=== PATIENT | male | born 1975 | race Caucasian/White ===

== ENCOUNTER 2017-01-19 21:25 | Emergency (ER) | payer MEDICAID, OTHER ==
[~2017-01-19] VITALS: Ht 172.7 cm; Wt 74.8 kg
--- NOTE | 2017-01-19 21:43 | NUR ---
PT WALKED INTO ER C/O CHEST PAIN WHICH STARTED ABOUT EARLIER TODAY PT STATES SEEMS TO HAVE GONE AWAY. THEN PT STAES ATE A MEAL AND THEN IT CAME BACK.PT STATES HAS HAD PAIN OFF AND ON SINCE .PT STATES TOOK 2 BABY ASPIRIN BEFORE HE CAME.PAIN NON PROVOKED SQUEEZING TYPE PAIN... PT ALERT, ORIENTED X 4, NO RESP DISTRESS NOTED OR REPORTED UPON ASSESSMENT... MD AT BEDSIDE...
[2017-01-19] MEDS ORDERED: NITROGLYCERIN OINT 1 GM PACKET TP ONE ×2 (22:00→22:16)
[2017-01-19] MEDS ORDERED: LORAZEPAM 0.5 MG TABLET PO ONE (22:00)
[2017-01-19 22:16] LABS: BASOPHILS # (AUTO) 0.1 K/uL (0.0-8.0); BASOPHILS % (AUTO) 0.8 % (0.0-2.0); EOSINOPHILS # (AUTO) 0.2 K/uL (0.0-0.7); EOSINOPHILS % (AUTO) 2.4 % (0.0-7.0); HEMATOCRIT 42.9 % (36.7-47.1); HEMOGLOBIN 15.2 g/dL (12.5-16.3); LYMPHOCYTES % (AUTO) 35.8 % (20.5-51.5); MEAN CORPUSCULAR HEMOGLOBIN 31.8 uug (23.8-33.4); MEAN CORPUSCULAR HGB CONC 35 g/dL (32.5-36.3); MEAN CORPUSCULAR VOLUME 89.7 fL (73.0-96.2); MONOCYTES # (AUTO) 0.6 K/uL (2.0-10.0); NEUTROPHILS # (AUTO) 4.5 K/uL (1.8-8.9); PLATELET COUNT (AUTO) 159 K/uL (152-348); RED BLOOD CELL COUNT(AUTO) 4.79 MIL/uL (4.06-5.63); RED CELL DISTRIBUTION WIDTH 11.9 % (12.1-16.2); WHITE BLOOD COUNT (AUTO) 8.4 K/uL (3.6-10.2)
[2017-01-19] MEDS ORDERED: LORAZEPAM 0.5 MG TABLET ONE (22:16)
[2017-01-19 22:20] LABS: CALCIUM 9.3 mg/dL (8.5-10.1); CREATININE 1.3 mg/dL (0.6-1.3); POTASSIUM 3.7 mmol/L (3.5-5.1)
[2017-01-19 22:37] LABS: ALBUMIN 4.2 g/dL (3.4-5.0); BILIRUBIN,DIRECT 0.3 mg/dL (0.0-0.2); TOTAL PROTEIN, SERUM 7.7 g/dL (6.4-8.2)
--- NOTE | 2017-01-20 02:01 | NUR ---
Patient discharged to home in stable conditon. Written and verbal after care instructions given. Patient verbalizes understanding of instructions. pt walked out of ER unassisted with belongings at side...
[2017-01-20 02:10] VITALS: BP 116/74
== END 2017-01-20 02:13 | disposition home or self-care (01) ==
LOC: ER 21:26
DX: R07.9 Chest pain, unspecified (principal)
CPT/HCPCS: 36415; 70030-TC; 71010; 85025; 93005; A4663

== ENCOUNTER 2017-02-07 13:35 | Emergency (ER) | payer MEDICAID ==
[~2017-02-07] VITALS: Ht 175.3 cm; Wt 70.3 kg
--- NOTE | 2017-02-07 14:23 | NUR ---
Patient discharged to home in stable conditon. Written and verbal after care instructions given to patient. Patient verbalizes understanding of instructions.
[2017-02-07] MEDS ORDERED: SULFAMETH/TRIMETH 800/160 MG TABLET PO ONE (14:30)
[2017-02-07] MEDS ORDERED: SULFAMETH/TRIMETH 800/160 MG TABLET ONE (14:41)
[2017-02-08] MEDS ORDERED: SULF1TAB48 PO (12:36)
== END 2017-02-07 14:31 | disposition home or self-care (01) ==
LOC: ER 13:35
DX: N39.0 Urinary tract infection, site not specified (principal); F41.9 Anxiety disorder, unspecified
CPT/HCPCS: A4663

== ENCOUNTER 2017-02-08 12:28 | Emergency (ER) | payer MEDICAID ==
[~2017-02-08] VITALS: Ht 175.3 cm; Wt 70.3 kg
[2017-02-08] MEDS ORDERED: SULF1TAB48 PO (12:36)
--- NOTE | 2017-02-08 12:46 | NUR ---
PT IS IN ROOM #2A. DR AMEZCUA EVALUATED THE PT.
[2017-02-08 13:00] LABS: *BILIRUBIN,URIN NEGATIVE (NEGATIVE); *BLOOD, URINE 2+ (NEGATIVE); *CLARITY,URINE CLEAR (CLEAR); *COLOR,URINE STRAW (YELLOW); *KETONES,URINE NEGATIVE (NEGATIVE); *PROTEIN,URINE NEGATIVE (NEGATIVE); *UROBILINOGEN,URINE 0.2 E.U./dl (NORMAL); LEUKOCYTE ESTERASE ,URINE NEGATIVE (NEGATIVE); NITRITE, URINE NEGATIVE (NEGATIVE); UGLUCOSE NEGATIVE (NEGATIVE)
[2017-02-08 13:05] LABS: BACTERIA,URINE FEW /HPF (NONE SEEN); SQUAMOUS EPITHELIAL CELL,UR FEW /HPF (NONE SEEN); WBC,URINE 0-3 /HPF (0-3)
[2017-02-08 13:40] LABS: BASOPHILS # (AUTO) 0.1 K/uL (0.0-8.0); BASOPHILS % (AUTO) 1.4 % (0.0-2.0); EOSINOPHILS # (AUTO) 0.1 K/uL (0.0-0.7); EOSINOPHILS % (AUTO) 1.6 % (0.0-7.0); HEMATOCRIT 43.5 % (40-50); HEMOGLOBIN 14.3 G/DL (14.0-18.0); LYMPHOCYTES # (AUTO) 3.1 K/UL (0.8-4.8); LYMPHOCYTES % (AUTO) 40.1 % (20.5-51.5); MEAN CORPUSCULAR HEMOGLOBIN 29.6 UUG (27.0-31.0); MEAN CORPUSCULAR HGB CONC 33 g/dL (32.0-37.0); MONOCYTES # (AUTO) 0.5 K/UL (0.1-1.30); MONOCYTES % (AUTO) 6.7 % (0.0-11.0); NEUTROPHILS # (AUTO) 3.9 K/UL (1.8-8.9); NEUTROPHILS % (AUTO) 50.2 % (38.5-71.5); PLATELET COUNT (AUTO) 151 K/UL (150-450); RED BLOOD CELL COUNT(AUTO) 4.84 MIL/UL (4.7-6.1); RED CELL DISTRIBUTION WIDTH 11.9 % (11.5-14.5); WHITE BLOOD COUNT (AUTO) 7.7 K/UL (4.0-11.2)
[2017-02-08 13:46] LABS: CALCIUM 9.2 mg/dL (8.5-10.1); CREATININE 1.3 mg/dL (0.6-1.3); POTASSIUM 4.1 mmol/L (3.5-5.1)
[2017-02-08 14:15] VITALS: BP 139/79
--- NOTE | 2017-02-08 14:15 | NUR ---
PT WAS D/C TO HOME. D/C INSTRUCTIONS GIVEN TO THE PT.
== END 2017-02-08 14:16 | disposition home or self-care (01) ==
LOC: ER 12:28
DX: N39.0 Urinary tract infection, site not specified (principal); F41.9 Anxiety disorder, unspecified
CPT/HCPCS: 36415; 76700; 85025; A4663

== ENCOUNTER 2017-03-24 11:52 | Emergency (ER) | payer OTHER ==
[~2017-03-24] VITALS: Ht 172.7 cm; Wt 68.0 kg
[~2017-03-24 11:52] MED LIST: SULF1TAB48 PO
--- NOTE | 2017-03-24 12:01 | NUR ---
DR AMEZCUA AT THE BEDSIDE FOR EVAL AND EXAM.
[2017-03-24 12:35] LABS: CREATININE 1.2 mg/dL (0.6-1.3)
[2017-03-24 12:36] LABS: BASOPHILS # (AUTO) 0.1 K/uL (0.0-8.0); BASOPHILS % (AUTO) 0.9 % (0.0-2.0); EOSINOPHILS # (AUTO) 0.1 K/uL (0.0-0.7); EOSINOPHILS % (AUTO) 1.6 % (0.0-7.0); HEMATOCRIT 42.3 % (40-50); HEMOGLOBIN 14.1 G/DL (14.0-18.0); LYMPHOCYTES # (AUTO) 2.3 K/UL (0.8-4.8); LYMPHOCYTES % (AUTO) 31.9 % (20.5-51.5); MEAN CORPUSCULAR HEMOGLOBIN 30.4 UUG (27.0-31.0); MEAN CORPUSCULAR HGB CONC 34 g/dL (32.0-37.0); MEAN CORPUSCULAR VOLUME 90.7 FL (82.0-92.0); MONOCYTES # (AUTO) 0.5 K/UL (0.1-1.30); MONOCYTES % (AUTO) 7.3 % (0.0-11.0); NEUTROPHILS # (AUTO) 4.1 K/UL (1.8-8.9); NEUTROPHILS % (AUTO) 58.3 % (38.5-71.5); PLATELET COUNT (AUTO) 150 K/UL (150-450); RED BLOOD CELL COUNT(AUTO) 4.66 MIL/UL (4.7-6.1); WHITE BLOOD COUNT (AUTO) 7.1 K/UL (4.0-11.2)
[2017-03-24 12:48] LABS: BILIRUBIN,DIRECT 0.2 mg/dL (0.0-0.2); BILIRUBIN,TOTAL 0.9 mg/dL (0.2-1.0)
[2017-03-24 13:21] VITALS: BP 115/66
--- NOTE | 2017-03-24 13:21 | NUR ---
Patient discharged to home in stable conditon. Written and verbal after care instructions given. Patient verbalizes understanding of instructions.
== END 2017-03-24 13:22 | disposition home or self-care (01) ==
LOC: ER 11:57
DX: R07.89 Other chest pain (principal); F41.9 Anxiety disorder, unspecified
CPT/HCPCS: 36415; 70030-TC; 85025; 85730; 93005; A4663

== ENCOUNTER 2018-05-04 22:05 | Emergency (ER) | payer MEDICAID, OTHER ==
[~2018-05-04] VITALS: Ht 172.7 cm; Wt 70.3 kg
[2018-05-04 22:34] LABS: *BILIRUBIN,URIN NEGATIVE (NEGATIVE); *BLOOD, URINE 2+ (NEGATIVE); *CLARITY,URINE CLEAR (CLEAR); *COLOR,URINE YELLOW (YELLOW); *KETONES,URINE NEGATIVE (NEGATIVE); *PROTEIN,URINE NEGATIVE (NEGATIVE); *UROBILINOGEN,URINE 0.2 E.U./dl (NORMAL); LEUKOCYTE ESTERASE ,URINE NEGATIVE (NEGATIVE); NITRITE, URINE NEGATIVE (NEGATIVE); UGLUCOSE NEGATIVE (NEGATIVE)
[2018-05-04 22:40] LABS: BACTERIA,URINE NONE SEEN /HPF (NONE SEEN); WBC,URINE 0-3 /HPF (0-3)
[2018-05-04 22:41] LABS: SQUAMOUS EPITHELIAL CELL,UR NONE SEEN /HPF (NONE SEEN)
[2018-05-04] MEDS ORDERED: ACETAMINOPHEN ES 500 MG TABLET ONE (22:44)
[2018-05-04] MEDS ORDERED: ACETAMINOPHEN ES 500 MG TABLET PO ONE (22:45)
[2018-05-04 23:29] LABS: BILIRUBIN,TOTAL 0.9 mg/dL (0.2-1.0); TOTAL PROTEIN, SERUM 7.5 g/dL (6.4-8.2)
[2018-05-04 23:38] LABS: BASOPHILS % (AUTO) 0.3 % (0.0-2.0); EOSINOPHILS % (AUTO) 0.2 % (0.0-7.0); HEMATOCRIT 42.1 % (36.7-47.1); HEMOGLOBIN 14.1 g/dL (12.5-16.3); LYMPHOCYTES # (AUTO) 2.1 K/uL (20.0-40.0); LYMPHOCYTES % (AUTO) 15.3 % (20.5-51.5); MEAN CORPUSCULAR HEMOGLOBIN 30.4 uug (23.8-33.4); MEAN CORPUSCULAR HGB CONC 34 g/dL (32.5-36.3); MEAN CORPUSCULAR VOLUME 90.8 fL (73.0-96.2); MONOCYTES # (AUTO) 1.2 K/uL (2.0-10.0); MONOCYTES % (AUTO) 8.3 % (0.0-11.0); NEUTROPHILS # (AUTO) 10.7 K/uL (1.8-8.9); NEUTROPHILS % (AUTO) 75.9 % (38.5-71.5); PLATELET COUNT (AUTO) 171 K/uL (152-348); RED BLOOD CELL COUNT(AUTO) 4.64 MIL/uL (4.06-5.63)
--- NOTE | 2018-05-05 00:18 | NUR ---
Patient discharged to home in stable conditon. Written and verbal after care instructions given. Patient verbalizes understanding of instructions. Patient able to ambulate unassisted with a steady gait. Patient left with all personal belongings.
[2018-05-05 00:30] VITALS: BP 138/88
== END 2018-05-05 00:18 | disposition home or self-care (01) ==
LOC: ER 22:07
DX: R10.9 Unspecified abdominal pain (principal); J02.0 Streptococcal pharyngitis
CPT/HCPCS: 36415; 80053; 81001; 85025; 86403; 87086; 99284; A4663; A9150

== ENCOUNTER 2018-05-27 00:35 | Emergency (ER) | payer SELFPAY ==
--- NOTE | 2018-05-27 01:00 | NUR ---
Patient decided not to be traige or seen by ERMD
== END 2018-05-27 02:22 | disposition left against medical advice (07) ==
LOC: ER 02:07
DX: Z53.21 Procedure and treatment not carried out due to patient leaving prior to being seen by health care provider (principal)

== ENCOUNTER 2018-06-24 11:20 | Emergency (ER) | payer OTHER ==
[~2018-06-24] VITALS: Ht 167.6 cm; Wt 68.0 kg
== END 2018-06-24 11:42 | disposition home or self-care (01) ==
LOC: ER 11:22
DX: A09 Infectious gastroenteritis and colitis, unspecified (principal)
CPT/HCPCS: 99283; A4663; J7030

== ENCOUNTER 2018-07-14 13:37 | Emergency (ER) | payer OTHER ==
[~2018-07-14] VITALS: Ht 172.7 cm; Wt 68.0 kg
[2018-07-14] MEDS ORDERED: FINASTERIDE 5 MG (13:57)
--- NOTE | 2018-07-14 14:27 | NUR ---
PT IS IN ROOM #2A. DR THOMSON EVALUATED THE PT.
[2018-07-14 14:37] LABS: BASOPHILS # (AUTO) 0.1 K/uL (0.0-8.0); BASOPHILS % (AUTO) 0.9 % (0.0-2.0); EOSINOPHILS # (AUTO) 0.2 K/uL (0.0-0.7); EOSINOPHILS % (AUTO) 2.1 % (0.0-7.0); HEMATOCRIT 44.1 % (36.7-47.1); HEMOGLOBIN 14.9 g/dL (12.5-16.3); LYMPHOCYTES % (AUTO) 36.7 % (20.5-51.5); MEAN CORPUSCULAR HGB CONC 34 g/dL (32.5-36.3); MEAN CORPUSCULAR VOLUME 91.7 fL (73.0-96.2); MONOCYTES # (AUTO) 0.6 K/uL (2.0-10.0); NEUTROPHILS # (AUTO) 4.3 K/uL (1.8-8.9); NEUTROPHILS % (AUTO) 53.3 % (38.5-71.5); PLATELET COUNT (AUTO) 158 K/uL (152-348); RED BLOOD CELL COUNT(AUTO) 4.81 MIL/uL (4.06-5.63); WHITE BLOOD COUNT (AUTO) 8.1 K/uL (3.6-10.2)
--- NOTE | 2018-07-14 14:43 | NUR ---
PT WAS EVALUATED BY DR THOMSON. PT WAS D/C TO HOME. D/C INSTRUCTIONS GIVEN TO THE PT.
[2018-07-14 14:44] VITALS: BP 132/72
== END 2018-07-14 14:46 | disposition home or self-care (01) ==
LOC: ER 13:37
DX: R59.0 Localized enlarged lymph nodes (principal)
CPT/HCPCS: 36415; 85025; A4663

== ENCOUNTER 2018-12-19 15:06 | Emergency (ER) | payer OTHER ==
[~2018-12-19] VITALS: Ht 172.7 cm; Wt 68.0 kg
[~2018-12-19 15:06] MED LIST changes: +FINASTERIDE 5 MG; -SULF1TAB48 PO
[2018-12-19 15:54] LABS: BASOPHILS # (AUTO) 0.1 K/uL (0.0-8.0); BASOPHILS % (AUTO) 0.8 % (0.0-2.0); EOSINOPHILS # (AUTO) 0.2 K/uL (0.0-0.7); EOSINOPHILS % (AUTO) 2.3 % (0.0-7.0); HEMATOCRIT 44.9 % (36.7-47.1); LYMPHOCYTES # (AUTO) 2.7 K/uL (20.0-40.0); LYMPHOCYTES % (AUTO) 37.5 % (20.5-51.5); MEAN CORPUSCULAR HEMOGLOBIN 29.4 uug (23.8-33.4); MEAN CORPUSCULAR HGB CONC 33 g/dL (32.5-36.3); MEAN CORPUSCULAR VOLUME 88.3 fL (73.0-96.2); MONOCYTES # (AUTO) 0.5 K/uL (2.0-10.0); MONOCYTES % (AUTO) 6.3 % (0.0-11.0); NEUTROPHILS # (AUTO) 3.8 K/uL (1.8-8.9); NEUTROPHILS % (AUTO) 53.1 % (38.5-71.5); PLATELET COUNT (AUTO) 151 K/uL (152-348); RED BLOOD CELL COUNT(AUTO) 5.09 MIL/uL (4.06-5.63); WHITE BLOOD COUNT (AUTO) 7.2 K/uL (3.6-10.2)
[2018-12-19 15:58] LABS: *BILIRUBIN,URIN NEGATIVE (NEGATIVE); *BLOOD, URINE 2+ (NEGATIVE); *CLARITY,URINE CLEAR (CLEAR); *COLOR,URINE YELLOW (YELLOW); *KETONES,URINE NEGATIVE (NEGATIVE); *UROBILINOGEN,URINE 0.2 E.U./dl (NORMAL); LEUKOCYTE ESTERASE ,URINE NEGATIVE (NEGATIVE); NITRITE, URINE NEGATIVE (NEGATIVE); UGLUCOSE NEGATIVE (NEGATIVE)
[2018-12-19 15:59] LABS: CREATININE 1.4 mg/dL (0.6-1.3); POTASSIUM 4.2 mmol/L (3.5-5.1)
[2018-12-19 16:04] LABS: RBC,URINE 20-50 /HPF (0-3); WBC,URINE NONE SEEN /HPF (0-3)
--- NOTE | 2018-12-19 17:46 | NUR ---
PT DISCHARGED TO HOME, DISCHAREG INSTRUCTIONS AND PRESCRIPTION GIVEN. COPY OF U/S CD WAS GIVEN WITH LABS.
== END 2018-12-19 17:50 | disposition home or self-care (01) ==
LOC: ER 15:06
DX: N20.0 Calculus of kidney (principal); N28.9 Disorder of kidney and ureter, unspecified; Z88.8 Allergy status to other drugs, medicaments and biological substances; Z79.899 Other long term (current) drug therapy
CPT/HCPCS: 36415; 76770; 85025; A4663

== ENCOUNTER 2018-12-27 13:33 | Emergency (ER) | payer OTHER ==
[~2018-12-27] VITALS: Ht 172.7 cm; Wt 68.0 kg
--- NOTE | 2018-12-27 14:15 | NUR ---
Patient coming to ED with co right flank pain, on scale 1-10=6. Patient uses bathroom, and UA sent to lab. Patient has previously been to ED with right flank pain 2 weeks ago, and issur remains unresolved.
[2018-12-27 14:34] LABS: *BILIRUBIN,URIN NEGATIVE (NEGATIVE); *BLOOD, URINE 1+ (NEGATIVE); *CLARITY,URINE CLEAR (CLEAR); *COLOR,URINE YELLOW (YELLOW); *KETONES,URINE NEGATIVE (NEGATIVE); *UROBILINOGEN,URINE 0.2 E.U./dl (NORMAL); LEUKOCYTE ESTERASE ,URINE NEGATIVE (NEGATIVE); NITRITE, URINE NEGATIVE (NEGATIVE); UGLUCOSE NEGATIVE (NEGATIVE)
[2018-12-27 14:41] LABS: WBC,URINE 0-3 /HPF (0-3)
[2018-12-27 15:47] LABS: BASOPHILS % (AUTO) 0.7 % (0.0-2.0); EOSINOPHILS # (AUTO) 0.1 K/uL (0.0-0.7); EOSINOPHILS % (AUTO) 1.8 % (0.0-7.0); HEMOGLOBIN 14.4 g/dL (12.5-16.3); LYMPHOCYTES # (AUTO) 2.8 K/uL (20.0-40.0); LYMPHOCYTES % (AUTO) 38.7 % (20.5-51.5); MEAN CORPUSCULAR HEMOGLOBIN 29.4 uug (23.8-33.4); MEAN CORPUSCULAR HGB CONC 34 g/dL (32.5-36.3); MEAN CORPUSCULAR VOLUME 87.9 fL (73.0-96.2); MONOCYTES # (AUTO) 0.5 K/uL (2.0-10.0); MONOCYTES % (AUTO) 6.7 % (0.0-11.0); NEUTROPHILS # (AUTO) 3.8 K/uL (1.8-8.9); NEUTROPHILS % (AUTO) 52.1 % (38.5-71.5); PLATELET COUNT (AUTO) 146 K/uL (152-348); WHITE BLOOD COUNT (AUTO) 7.2 K/uL (3.6-10.2)
[2018-12-27 15:56] LABS: CREATININE 1.2 mg/dL (0.6-1.3); POTASSIUM 4.1 mmol/L (3.5-5.1)
[2018-12-27 16:02] LABS: BILIRUBIN,TOTAL 1.4 mg/dL (0.2-1.0); TOTAL PROTEIN, SERUM 7.5 g/dL (6.4-8.2)
--- NOTE | 2018-12-27 16:19 | NUR ---
DC AND FOLLOW UP INSTRUCTIONS GIVEN AND EXPLAINED TO PATIENT WHO STATES HE UNDERSTANDS ALL INSTRUCTIONS. COPY OF LABS GIVEN.
[2018-12-27 16:20] VITALS: BP 128/79
== END 2018-12-27 16:21 | disposition home or self-care (01) ==
LOC: ER 13:33
DX: R10.9 Unspecified abdominal pain (principal); R30.0 Dysuria; R35.0 Frequency of micturition; Z88.8 Allergy status to other drugs, medicaments and biological substances; Z79.899 Other long term (current) drug therapy
CPT/HCPCS: 36415; 76770; 85025; A4663

== ENCOUNTER 2019-03-30 12:20 | Emergency (ER) | payer OTHER ==
[~2019-03-30] VITALS: Ht 172.7 cm; Wt 68.0 kg
[2019-03-30 13:03] LABS: *BILIRUBIN,URIN NEGATIVE (NEGATIVE); *BLOOD, URINE 1+ (NEGATIVE); *CLARITY,URINE CLEAR (CLEAR); *COLOR,URINE LIGHT YELLOW (YELLOW); *KETONES,URINE NEGATIVE (NEGATIVE); *UROBILINOGEN,URINE 0.2 E.U./dl (NORMAL); LEUKOCYTE ESTERASE ,URINE NEGATIVE (NEGATIVE); NITRITE, URINE NEGATIVE (NEGATIVE); UGLUCOSE NEGATIVE (NEGATIVE)
[2019-03-30 13:10] LABS: BACTERIA,URINE NONE SEEN /HPF (NONE SEEN); SQUAMOUS EPITHELIAL CELL,UR NONE SEEN /HPF (NONE SEEN); WBC,URINE 0-3 /HPF (0-3)
[2019-03-30 13:20] LABS: BASOPHILS # (AUTO) 0.1 K/uL (0.0-8.0); BASOPHILS % (AUTO) 0.8 % (0.0-2.0); EOSINOPHILS # (AUTO) 0.1 K/uL (0.0-0.7); EOSINOPHILS % (AUTO) 2.1 % (0.0-7.0); HEMATOCRIT 41.6 % (36.7-47.1); HEMOGLOBIN 13.9 g/dL (12.5-16.3); LYMPHOCYTES # (AUTO) 2.3 K/uL (20.0-40.0); LYMPHOCYTES % (AUTO) 34.9 % (20.5-51.5); MEAN CORPUSCULAR HEMOGLOBIN 30.5 uug (23.8-33.4); MEAN CORPUSCULAR HGB CONC 34 g/dL (32.5-36.3); MEAN CORPUSCULAR VOLUME 91.2 fL (73.0-96.2); MONOCYTES # (AUTO) 0.4 K/uL (2.0-10.0); MONOCYTES % (AUTO) 6.4 % (0.0-11.0); NEUTROPHILS # (AUTO) 3.7 K/uL (1.8-8.9); NEUTROPHILS % (AUTO) 55.8 % (38.5-71.5); PLATELET COUNT (AUTO) 140 K/uL (152-348); RED BLOOD CELL COUNT(AUTO) 4.56 MIL/uL (4.06-5.63); WHITE BLOOD COUNT (AUTO) 6.7 K/uL (3.6-10.2)
[2019-03-30 13:25] LABS: CREATININE 1.1 mg/dL (0.6-1.3); POTASSIUM 4.3 mmol/L (3.5-5.1)
[2019-03-30 13:31] LABS: BILIRUBIN,DIRECT 0.2 mg/dL (0.0-0.2); BILIRUBIN,TOTAL 1.1 mg/dL (0.2-1.0); TOTAL PROTEIN, SERUM 7.1 g/dL (6.4-8.2)
--- NOTE | 2019-03-30 13:54 | NUR ---
Patient discharged to home in stable conditon. Written and verbal after care instructions given. Patient verbalizes understanding of instructions.
== END 2019-03-30 14:01 | disposition home or self-care (01) ==
LOC: ER 12:23
DX: R31.29 Other microscopic hematuria (principal); D29.1 Benign neoplasm of prostate; Z88.8 Allergy status to other drugs, medicaments and biological substances; Z79.899 Other long term (current) drug therapy
CPT/HCPCS: 36415; 76700; 83690; 85025; 87086; A4663

== ENCOUNTER 2020-06-05 10:27 | Emergency (ER) | payer OTHER ==
[~2020-06-05] VITALS: Ht 172.7 cm; Wt 70.3 kg
--- NOTE | 2020-06-05 10:44 | NUR ---
Pt presents to ER for c/o of Lt flank pain for 2 months, on/off but worse these past 2 days. Pt denies pain or burning during urination. Denies kidney stones. Placed in Bed 4B. No acute distress. States pain level is 3/10. Awaiting MD huffman.
[2020-06-05 11:13] LABS: *BILIRUBIN,URIN NEGATIVE (NEGATIVE); *BLOOD, URINE 1+ (NEGATIVE); *CLARITY,URINE CLEAR (CLEAR); *COLOR,URINE YELLOW (YELLOW); *KETONES,URINE NEGATIVE (NEGATIVE); *UROBILINOGEN,URINE 0.2 E.U./dl (NORMAL); LEUKOCYTE ESTERASE ,URINE NEGATIVE (NEGATIVE); NITRITE, URINE NEGATIVE (NEGATIVE); PH,URINE 7.5 (5.0-8.0); UGLUCOSE NEGATIVE (NEGATIVE)
[2020-06-05] MEDS ORDERED: IV NORMAL SALINE 1000 ML BAG IV ONE (11:15)
--- NOTE | 2020-06-05 11:24 | NUR ---
attempted to insert IV to pt, and informed him that IV is for hydration. Pt requested to speak to Dr. Bashir. Dr. Bashir made aware.
--- NOTE | 2020-06-05 11:38 | NUR ---
Dr. Bashir at bedside speaking with patient
[2020-06-05 11:44] LABS: BASOPHILS # (AUTO) 0.1 K/uL (0.0-8.0); EOSINOPHILS # (AUTO) 0.1 K/uL (0.0-0.7); EOSINOPHILS % (AUTO) 1.2 % (0.0-7.0); HEMATOCRIT 42.9 % (36.7-47.1); HEMOGLOBIN 14.7 g/dL (12.5-16.3); LYMPHOCYTES # (AUTO) 2.8 K/uL (20.0-40.0); LYMPHOCYTES % (AUTO) 39.3 % (20.5-51.5); MEAN CORPUSCULAR HEMOGLOBIN 30.4 uug (23.8-33.4); MEAN CORPUSCULAR HGB CONC 34 g/dL (32.5-36.3); MEAN CORPUSCULAR VOLUME 88.7 fL (73.0-96.2); MONOCYTES # (AUTO) 0.5 K/uL (2.0-10.0); MONOCYTES % (AUTO) 6.3 % (0.0-11.0); NEUTROPHILS # (AUTO) 3.7 K/uL (1.8-8.9); NEUTROPHILS % (AUTO) 52.2 % (38.5-71.5); PLATELET COUNT (AUTO) 170 K/uL (152-348); RED BLOOD CELL COUNT(AUTO) 4.83 MIL/uL (4.06-5.63); WHITE BLOOD COUNT (AUTO) 7.1 K/uL (3.6-10.2)
[2020-06-05 11:52] LABS: CREATININE 1.1 mg/dL (0.6-1.3); POTASSIUM 4.2 mmol/L (3.5-5.1)
[2020-06-05 11:58] LABS: BILIRUBIN,TOTAL 1.2 mg/dL (0.2-1.0); TOTAL PROTEIN, SERUM 7.5 g/dL (6.4-8.2)
--- NOTE | 2020-06-05 11:58 | NUR ---
Ultrasound at bedside.
[2020-06-05 13:45] LABS: BACTERIA,URINE NONE SEEN /HPF (NONE SEEN); RBC,URINE 0-3 /HPF (0-3); SQUAMOUS EPITHELIAL CELL,UR FEW /HPF (NONE SEEN); WBC,URINE 0-3 /HPF (0-3)
--- NOTE | 2020-06-05 14:05 | NUR ---
Per Dr. Bashir pt stable or DC, DC instructions and prescriptions given and reviewed with patient. Verbalized understanding. IV d'cd noted with tip intact. Left ER in stable condition.
[2020-06-05 14:06] VITALS: BP 109/68
== END 2020-06-05 14:00 | disposition home or self-care (01) ==
LOC: ER 10:27
DX: R10.9 Unspecified abdominal pain (principal); Z87.442 Personal history of urinary calculi; R31.29 Other microscopic hematuria; Z82.49 Family history of ischemic heart disease and other diseases of the circulatory system; N40.0 Benign prostatic hyperplasia without lower urinary tract symptoms; Z87.440 Personal history of urinary (tract) infections
CPT/HCPCS: 36415; 76770; 85025; A4663

== ENCOUNTER 2020-11-12 10:05 | Emergency (ER) | payer OTHER ==
[~2020-11-12] VITALS: Ht 172.7 cm; Wt 72.6 kg
--- NOTE | 2020-11-12 10:20 | NUR ---
at bedside for assessment
--- NOTE | 2020-11-12 10:39 | NUR ---
photovoltaic fabrication technician noted in room to draw blood at this time
--- NOTE | 2020-11-12 10:45 | NUR ---
Patient taken to CT via wheelchair
[2020-11-12 10:47] LABS: BASOPHILS # (AUTO) 0.3 K/uL (0.0-8.0); EOSINOPHILS # (AUTO) 0.1 K/uL (0.0-0.7); EOSINOPHILS % (AUTO) 1.6 % (0.0-7.0); HEMATOCRIT 44.2 % (36.7-47.1); HEMOGLOBIN 14.9 g/dL (12.5-16.3); LYMPHOCYTES # (AUTO) 2.1 K/uL (20.0-40.0); LYMPHOCYTES % (AUTO) 28.5 % (20.5-51.5); MEAN CORPUSCULAR HEMOGLOBIN 30.3 uug (23.8-33.4); MEAN CORPUSCULAR HGB CONC 34 g/dL (32.5-36.3); MEAN CORPUSCULAR VOLUME 89.9 fL (73.0-96.2); MONOCYTES # (AUTO) 0.5 K/uL (2.0-10.0); MONOCYTES % (AUTO) 6.6 % (0.0-11.0); NEUTROPHILS # (AUTO) 4.3 K/uL (1.8-8.9); NEUTROPHILS % (AUTO) 59.3 % (38.5-71.5); PLATELET COUNT (AUTO) 173 K/uL (152-348); RED BLOOD CELL COUNT(AUTO) 4.92 MIL/uL (4.06-5.63); WHITE BLOOD COUNT (AUTO) 7.2 K/uL (3.6-10.2)
[2020-11-12 10:54] LABS: CREATININE 1.1 mg/dL (0.6-1.3); POTASSIUM 4.2 mmol/L (3.5-5.1)
--- NOTE | 2020-11-12 10:56 | NUR ---
Patient returned from CT scan at this time
[2020-11-12 10:59] LABS: BILIRUBIN,DIRECT 0.2 mg/dL (0.0-0.2); BILIRUBIN,TOTAL 1.1 mg/dL (0.2-1.0); TOTAL PROTEIN, SERUM 7.3 g/dL (6.4-8.2)
[2020-11-12 11:28] LABS: *BILIRUBIN,URIN NEGATIVE (NEGATIVE); *BLOOD, URINE 2+ (NEGATIVE); *CLARITY,URINE CLEAR (CLEAR); *COLOR,URINE YELLOW (YELLOW); *KETONES,URINE NEGATIVE (NEGATIVE); *UROBILINOGEN,URINE 0.2 E.U./dl (NORMAL); LEUKOCYTE ESTERASE ,URINE NEGATIVE (NEGATIVE); NITRITE, URINE NEGATIVE (NEGATIVE); UGLUCOSE NEGATIVE (NEGATIVE)
[2020-11-12] MEDS ORDERED: FINA5TAB11 PO (11:47)
--- NOTE | 2020-11-12 11:57 | NUR ---
Patient discharged to home in stable condition. Able to ambulate with steady gait. took all belongings, no signs of acute distrerss noted. Written and verbal after care instructions given. Patient verbalizes understanding of instructions. Stressed follow up or return to ER for worsening s/s.
[2020-11-12 11:58] VITALS: BP 120/75
[2020-11-12 13:13] LABS: BACTERIA,URINE NONE SEEN /HPF (NONE SEEN); SQUAMOUS EPITHELIAL CELL,UR FEW /HPF (NONE SEEN); WBC,URINE 0-3 /HPF (0-3)
== END 2020-11-12 12:00 | disposition home or self-care (01) ==
LOC: ER 10:05
DX: N40.1 Benign prostatic hyperplasia with lower urinary tract symptoms (principal); R10.30 Lower abdominal pain, unspecified; F41.9 Anxiety disorder, unspecified; K40.20 Bilateral inguinal hernia, without obstruction or gangrene, not specified as recurrent
CPT/HCPCS: 36415; 85025; A4663

== ENCOUNTER 2021-01-16 19:09 | Emergency (ER) | payer OTHER ==
[~2021-01-16] VITALS: Ht 172.7 cm; Wt 74.8 kg
[~2021-01-16 19:09] MED LIST changes: +FINA5TAB11 PO
--- NOTE | 2021-01-16 19:23 | NUR ---
MD Salas in room to do MSE.
[2021-01-16] MEDS ORDERED: OFLO5DRO5 OT (19:36)
[2021-01-16] MEDS ORDERED: HYDR-3980 PO (19:36)
[2021-01-16 19:45] VITALS: BP 130/64
--- NOTE | 2021-01-16 19:45 | NUR ---
Patient discharged to home in stable condition. Written and verbal after care instructions given. Patient verbalizes understanding of instructions. Stressed follow up or return to ER for worsening s/s. Patient ambulates with steady gait, received paper Rx, vital signs stable, and left with all personal belongings.
== END 2021-01-16 19:45 | disposition home or self-care (01) ==
LOC: ER 19:14
DX: H60.92 Unspecified otitis externa, left ear (principal); Z82.49 Family history of ischemic heart disease and other diseases of the circulatory system
CPT/HCPCS: A4663

== ENCOUNTER 2021-04-25 21:55 | Emergency (ER) | payer OTHER ==
[~2021-04-25] VITALS: Ht 172.7 cm; Wt 73.5 kg
[~2021-04-25 21:55] MED LIST changes: +HYDR-3980 PO; +OFLO5DRO5 OT
[2021-04-26 01:34] LABS: *BILIRUBIN,URIN NEGATIVE (NEGATIVE); *BLOOD, URINE 2+ (NEGATIVE); *CLARITY,URINE CLEAR (CLEAR); *KETONES,URINE NEGATIVE (NEGATIVE); *UROBILINOGEN,URINE 0.2 E.U./dl (NORMAL); LEUKOCYTE ESTERASE ,URINE NEGATIVE (NEGATIVE); NITRITE, URINE NEGATIVE (NEGATIVE); PH,URINE 6.5 (5.0-8.0); UGLUCOSE NEGATIVE (NEGATIVE)
[2021-04-26 01:42] LABS: *COLOR,URINE STRAW (YELLOW)
[2021-04-26 01:44] LABS: BACTERIA,URINE NONE SEEN /HPF (NONE SEEN); RBC,URINE 0-3 /HPF (0-3); SQUAMOUS EPITHELIAL CELL,UR FEW /HPF (NONE SEEN); WBC,URINE NONE SEEN /HPF (0-3)
[2021-04-26] MEDS ORDERED: IV NORMAL SALINE 1000 ML BAG IV ONE (02:15)
[2021-04-26 02:46] LABS: HEMATOCRIT 47.5 % (36.7-47.1); MEAN CORPUSCULAR HEMOGLOBIN 30.8 uug (23.8-33.4); MEAN CORPUSCULAR VOLUME 89.9 fL (73.0-96.2); PLATELET COUNT (AUTO) 216 K/uL (152-348)
[2021-04-26 02:54] LABS: POTASSIUM 3.9 mmol/L (3.5-5.1)
[2021-04-26 03:05] LABS: BILIRUBIN,DIRECT 0.2 mg/dL (0.0-0.2); BILIRUBIN,TOTAL 1.2 mg/dL (0.2-1.0); TOTAL PROTEIN, SERUM 8.6 g/dL (6.4-8.2)
--- NOTE | 2021-04-26 03:30 | NUR ---
Vibha davis into do ultrasound.
--- NOTE | 2021-04-26 04:00 | NUR ---
Patient resting on gurny with no distress noted.
[2021-04-26] MEDS ORDERED: AZITHROMYCIN 250 MG TABLET ONE (04:29)
[2021-04-26] MEDS ORDERED: LIDOCAINE HCL 1% 20 ML VIAL ONE (04:29)
[2021-04-26] MEDS ORDERED: CEFTRIAXONE 500 MG VIAL IM ONE (04:30)
[2021-04-26] MEDS ORDERED: CEFTRIAXONE 500 MG VIAL ONE (04:30)
[2021-04-26] MEDS ORDERED: AZITHROMYCIN 250 MG TABLET PO ONE (04:30)
--- NOTE | 2021-04-26 05:50 | NUR ---
IV removed. Catheter intact and site benign. Pressure and 4x4 gauze applied to site. No bleeding noted.
[2021-04-26 05:57] VITALS: BP 122/72
--- NOTE | 2021-04-26 05:57 | NUR ---
Patient discharged to home in stable condition. Written and verbal after care instructions given. Patient verbalizes understanding of instructions. Stressed follow up or return to ER for worsening s/s.
== END 2021-04-26 05:58 | disposition home or self-care (01) ==
LOC: ER 21:55
DX: R10.31 Right lower quadrant pain (principal); N34.2 Other urethritis; Z82.49 Family history of ischemic heart disease and other diseases of the circulatory system; F41.9 Anxiety disorder, unspecified
CPT/HCPCS: 36415; 76770; 80048; 80076; 81001; 83690; 85025; 87491; 96360; 96372; 99285; J0696; J3490; A4663; J7030; Q0144

== ENCOUNTER 2021-06-18 13:44 | Emergency (ER) | payer OTHER ==
[~2021-06-18] VITALS: Ht 172.7 cm; Wt 73.5 kg
--- NOTE | 2021-06-18 14:12 | NUR ---
DR Pepper at the bedside for MSE.
[2021-06-18 14:45] LABS: *BILIRUBIN,URIN NEGATIVE (NEGATIVE); *BLOOD, URINE 3+ (NEGATIVE); *CLARITY,URINE CLEAR (CLEAR); *COLOR,URINE YELLOW (YELLOW); *KETONES,URINE NEGATIVE (NEGATIVE); *UROBILINOGEN,URINE 0.2 E.U./dl (NORMAL); LEUKOCYTE ESTERASE ,URINE NEGATIVE (NEGATIVE); NITRITE, URINE NEGATIVE (NEGATIVE); UGLUCOSE NEGATIVE (NEGATIVE)
[2021-06-18 14:47] LABS: CREATININE 1.1 mg/dL (0.6-1.3); HEMATOCRIT 43.9 % (36.7-47.1); MEAN CORPUSCULAR HEMOGLOBIN 30.9 uug (23.8-33.4); MEAN CORPUSCULAR VOLUME 90.5 fL (73.0-96.2); PLATELET COUNT (AUTO) 183 K/uL (152-348); POTASSIUM 4.5 mmol/L (3.5-5.1)
[2021-06-18 14:54] LABS: BILIRUBIN,DIRECT 0.2 mg/dL (0.0-0.2); BILIRUBIN,TOTAL 1.4 mg/dL (0.2-1.0); TOTAL PROTEIN, SERUM 7.6 g/dL (6.4-8.2)
[2021-06-18 16:01] VITALS: BP 112/76
[2021-06-18 18:03] LABS: BACTERIA,URINE NONE SEEN /HPF (NONE SEEN); RBC,URINE 20-50 /HPF (0-3); WBC,URINE 0-3 /HPF (0-3)
[2021-06-18 18:04] LABS: SQUAMOUS EPITHELIAL CELL,UR FEW /HPF (NONE SEEN)
== END 2021-06-18 16:02 | disposition home or self-care (01) ==
LOC: ER 13:44
DX: R10.84 Generalized abdominal pain (principal); M54.9 Dorsalgia, unspecified; Z87.442 Personal history of urinary calculi
CPT/HCPCS: 36415; 76700; 83690; 85025; A4663

== ENCOUNTER 2021-12-22 10:20 | Emergency (ER) | payer OTHER ==
[~2021-12-22] VITALS: Ht 172.7 cm; Wt 77.1 kg
[2021-12-22 10:48] LABS: *BILIRUBIN,URIN NEGATIVE (NEGATIVE); *BLOOD, URINE 2+ (NEGATIVE); *CLARITY,URINE CLEAR (CLEAR); *COLOR,URINE YELLOW (YELLOW); *KETONES,URINE NEGATIVE (NEGATIVE); *UROBILINOGEN,URINE 0.2 E.U./dl (NORMAL); LEUKOCYTE ESTERASE ,URINE NEGATIVE (NEGATIVE); NITRITE, URINE NEGATIVE (NEGATIVE); PH,URINE 6.5 (5.0-8.0); UGLUCOSE NEGATIVE (NEGATIVE)
--- NOTE | 2021-12-22 11:14 | NUR ---
Patient is resting comfortably on gurney, nAD, calm & breathing easily, pending U/A results.
[2021-12-22] MEDS ORDERED: DOXY100T2 PO (11:37)
--- NOTE | 2021-12-22 11:40 | NUR ---
Copy of the urine test results were given to patient.
--- NOTE | 2021-12-22 11:41 | NUR ---
Patient discharged to home in stable condition with brisk steady gait. Written and verbal after care instructions given to patient. Patient verbalized understanding and compliance of instructions. Stressed follow up with primary doctor and urologist or return to ER for worsening s/s.
[2021-12-22 12:17] LABS: BACTERIA,URINE NONE SEEN /HPF (NONE SEEN); WBC,URINE 0-3 /HPF (0-3)
[2021-12-22 12:18] LABS: SQUAMOUS EPITHELIAL CELL,UR NONE SEEN /HPF (NONE SEEN)
== END 2021-12-22 11:42 | disposition home or self-care (01) ==
LOC: ER 10:21
DX: N53.12 Painful ejaculation (principal); R31.29 Other microscopic hematuria
CPT/HCPCS: 87086; A4663

== ENCOUNTER 2022-02-10 12:41 | Emergency (ER) | payer MEDICAID, OTHER ==
[~2022-02-10] VITALS: Ht 172.7 cm; Wt 77.1 kg
[~2022-02-10 12:41] MED LIST changes: +DOXY100T2 PO
[2022-02-10] MEDS ORDERED: IV NORMAL SALINE 1000 ML BAG IV ONE (13:00)
[2022-02-10 13:20] LABS: HEMATOCRIT 44.9 % (36.7-47.1); MEAN CORPUSCULAR HEMOGLOBIN 30.5 uug (23.8-33.4); MEAN CORPUSCULAR VOLUME 88.2 fL (73.0-96.2); PLATELET COUNT (AUTO) 171 K/uL (152-348)
[2022-02-10 13:21] LABS: *BILIRUBIN,URIN NEGATIVE (NEGATIVE); *BLOOD, URINE 2+ (NEGATIVE); *CLARITY,URINE CLEAR (CLEAR); *COLOR,URINE YELLOW (YELLOW); *KETONES,URINE NEGATIVE (NEGATIVE); *UROBILINOGEN,URINE 0.2 E.U./dl (NORMAL); CREATININE 1.3 mg/dL (0.6-1.3); LEUKOCYTE ESTERASE ,URINE NEGATIVE (NEGATIVE); NITRITE, URINE NEGATIVE (NEGATIVE); UGLUCOSE NEGATIVE (NEGATIVE)
--- NOTE | 2022-02-10 15:01 | NUR ---
PT WAS D/C'd TO HOME. D/C INSTRUCTIONS GIVEN TO THE PT BY DR LE.
[2022-02-10 15:02] VITALS: BP 139/74
[2022-02-10 20:15] LABS: BACTERIA,URINE NONE SEEN /HPF (NONE SEEN); SQUAMOUS EPITHELIAL CELL,UR NONE SEEN /HPF (NONE SEEN); WBC,URINE 0-3 /HPF (0-3)
== END 2022-02-10 15:04 | disposition home or self-care (01) ==
LOC: ER 12:48
DX: R10.9 Unspecified abdominal pain (principal); N20.0 Calculus of kidney; Z87.442 Personal history of urinary calculi; Z87.898 Personal history of other specified conditions
CPT/HCPCS: 36415; 76770; 80048; 81001; 85025; 96360; 96361; 99284; J7040; A4663

== ENCOUNTER 2024-01-12 12:56 | Emergency (ER) | payer OTHER ==
[~2024-01-12] VITALS: Ht 172.7 cm; Wt 72.6 kg
[2024-01-12 13:49] LABS: *BILIRUBIN,URIN NEGATIVE (NEGATIVE); *BLOOD, URINE 1+ (NEGATIVE); *CLARITY,URINE CLEAR (CLEAR); *COLOR,URINE YELLOW (YELLOW); *KETONES,URINE NEGATIVE (NEGATIVE); *PROTEIN,URINE NEGATIVE (NEGATIVE); *UROBILINOGEN,URINE 0.2 E.U./dl (NORMAL); LEUKOCYTE ESTERASE ,URINE NEGATIVE (NEGATIVE); NITRITE, URINE NEGATIVE (NEGATIVE); UGLUCOSE NEGATIVE (NEGATIVE)
[2024-01-12 14:21] LABS: BACTERIA,URINE NONE SEEN /HPF (NONE SEEN); RBC,URINE 0-3 /HPF (0-3); SQUAMOUS EPITHELIAL CELL,UR FEW /HPF (NONE SEEN); WBC,URINE NONE SEEN /HPF (0-3)
[2024-01-12 15:34] VITALS: BP 126/74; O2SAT 98
[2024-01-14 00:07] LABS: *CHLAMYDIA NAA Negative (Negative); *GC NAA Negative (Negative); *TRIC.VAG. NAA Negative (Negative)
== END 2024-01-12 15:35 | disposition home or self-care (01) ==
LOC: ER 12:56
DX: R30.0 Dysuria (principal); Z98.890 Other specified postprocedural states; Z60.2 Problems related to living alone
CPT/HCPCS: 87491; A4606; A4663